=== PATIENT | male | born 1980 | race Caucasian/White ===

== ENCOUNTER → 2018-02-18 | Day surgery (SDC) | payer BC ==
[2018-02-15 09:57] LABS: BASO # 0.1 10*3/uL (0.0-0.1); BASO % 0.5 % (0.0-1.0); EOS # 0.3 10*3/uL (0.0-0.4); EOS % 2.4 % (1.0-4.0); HEMATOCRIT 45.1 % (42.0-52.0); HEMOGLOBIN 15.5 g/dl (14.0-18.0); LYMPH # 2.5 10*3/uL (1.3-4.4); LYMPH % 23.1 % (27.0-41.0); MEAN CELL VOLUME 86.7 fl (80.0-94.0); MEAN CORPUSCULAR HGB 29.8 pg (27.0-31.0); MEAN CORPUSCULAR HGB CONC 34.4 g/dl (33.0-37.0); MEAN PLATELET VOLUME 10.8 fl (9.6-12.3); MONO # 0.6 10*3/uL (0.1-1.0); MONO % 5.9 % (3.0-9.0); NEUT # 7.2 10*3/uL (2.3-7.9); NEUT % 67.7 % (47.0-73.0); PLATELET COUNT AUTOMATED 227 10*3/uL (130-400); RED CELL DISTRI WIDTH 12.6 % (0-14.5); WHITE BLOOD COUNT 10.7 10*3/uL (4.8-10.8)
[2018-02-15 10:15] LABS: BUN 14 mg/dl (7-24); CHLORIDE 107 mmol/L (98-107); CREATININE 0.83 mg/dL (0.70-1.30); POTASSIUM 3.4 mmol/L (3.5-5.1); SODIUM 141 mmol/L (136-145)
[2018-02-15 10:20] LABS: ACT PARTIAL THROMBO TIME 25.5 SECONDS (20.8-31.5)
[~2018-02-18] VITALS: Ht 182.8 cm; Wt 113.4 kg
[~2018-02-18] MED LIST: CLINDAMYCIN HC300 MG PO; FLEXERIL10 MG PO; FLEXERIL5 MG PO; MOTRIN800 MG PO; NAPROSYN500 MG PO; NORCO 5-325 TA1 EACH PO; PEN-VEE K500 MG PO; ULTRAM50 MG PO; VICODIN 5/500 505 MG PO; VOLTAREN50 M1 PO
--- NOTE | ~2018-02-18 | O ---
[place], [place] OPERATIVE NOTE NAME: JAIRO MAHARAJ UNIT #: [id number] ROOM: DOCTOR: JEFF BOSE MD BIRTHDATE: [birth year] DOS: 02/18/2018 PREOPERATIVE DIAGNOSIS: Umbilical hernia. POSTOPERATIVE DIAGNOSIS: Umbilical hernia. PROCEDURE: Umbilical hernia repair (primary). SURGEON: Jeff Bose MD OFFLINE CUTTER: KARL. ANESTHESIA: General. INDICATIONS: This is a 37-year-old gentleman with a symptomatic small umbilical hernia who is here for the above-mentioned procedure. The procedure and its complications were explained to the patient in detail preoperatively. Complications that were discussed included but were not limited to bleeding, infection, hematoma/seroma/abscess formation, prolonged postoperative pain and recurrence. He agreed to proceed. DESCRIPTION OF PROCEDURE: After identifying the patient, the patient was brought to the operating suite and laid in the supine position. After general anesthesia was administered by the anesthesia team, the parts were then painted and draped in the usual sterile fashion and a time-out procedure was called. An incision was made overlying the hernia to the left of the umbilicus in a circumlinear fashion. The skin and the subcutaneous tissue were incised and the hernia sac was dissected away from the surrounding subcutaneous tissue and was amputated at the area of the fascial defect and sent for histopathological diagnosis. Since the diameter of the hernial defect opening was approximately 2 mm, it was decided to perform a primary repair. This was done with the help [id number] #1 PDS suture. Thereafter, the subcutaneous tissue was irrigated and approximated with the help of 3-0 Vicryl in a running fashion and the edges of the skin were approximated with the help of 4-0 Vicryl after 1% lidocaine was injected for local anesthesia. Dressing was placed. The patient tolerated the procedure well. There were no complications. Dr. Jeff Bose, the attending surgeon, was present throughout the operating case. [place], [place] OPERATIVE NOTE NAME: JAIRO MAHARAJ UNIT #: [id number] ROOM: DOCTOR: JEFF BOSE MD BIRTHDATE: [birth year] Jeff Bose MD CM:OPRECORD:OPERATIVE NOTE [id number] JEFF BOSE MD 02/18/18 0942 interface
[2018-02-18 08:30] VITALS: BP 150/90
[2018-02-18 09:25] VITALS: BP 118/69
[2018-02-18 09:40] VITALS: BP 130/76
[2018-02-18 09:55] VITALS: BP 125/68
[2018-02-18 10:10] VITALS: BP 132/65
== END | disposition home or self-care (01) ==
LOC: SDC 02-15 08:45
PROVIDERS: Surgery
DX: K42.9 Umbilical hernia without obstruction or gangrene (principal); F17.210 Nicotine dependence, cigarettes, uncomplicated; Z90.49 Acquired absence of other specified parts of digestive tract; Z79.899 Other long term (current) drug therapy

== ENCOUNTER → 2020-09-12 | Outpatient (CLI) | payer BC | END | disposition home or self-care (01) | LOC: COVID19 10:50 | PROVIDERS: ATTEND Family Medicine | DX: Z20.828 Contact with and (suspected) exposure to other viral communicable diseases (principal) ==

== ENCOUNTER → 2022-04-04 | Outpatient (CLI) | payer BC ==
[2022-04-04 08:08] LABS: HEMATOCRIT 45.3 % (42.0-52.0); MEAN CELL VOLUME 83.3 fl (80.0-94.0); MEAN CORPUSCULAR HGB 29.2 pg (27.0-31.0); MEAN CORPUSCULAR HGB CONC 35.1 g/dl (33.0-37.0); MEAN PLATELET VOLUME 11.2 fl (9.6-12.3); RED BLOOD COUNT 5.44 10*6/uL (4.50-5.90); RED CELL DISTRI WIDTH 12.2 % (0-14.5); WHITE BLOOD COUNT 10.9 10*3/uL (4.8-10.8)
[2022-04-04 08:38] LABS: ALKALINE PHOSPHATASE 132 U/L (45-117); BUN 18 mg/dl (7-24); CHLORIDE 109 mmol/L (98-107); CHOLESTEROL 154 mg/dL (<200); CREATININE 0.93 mg/dL (0.70-1.30); LDL CHOLESTEROL 71 mg/dL (9-159); POTASSIUM 3.7 mmol/L (3.5-5.1); SGOT/AST 18 IU/L (3-35); SGPT/ALT 42 U/L (12-78); SODIUM 138 mmol/L (136-145); TOTAL PROTEIN 7.5 gm/dL (6.4-8.2); TRIGLYCERIDES 270 mg/dl (<150)
== END | disposition home or self-care (01) ==
LOC: LAB 07:45
PROVIDERS: ATTEND Family Medicine
DX: E11.9 Type 2 diabetes mellitus without complications (principal); I10 Essential (primary) hypertension; R53.83 Other fatigue; E55.9 Vitamin D deficiency, unspecified; E78.00 Pure hypercholesterolemia, unspecified

== ENCOUNTER → 2022-04-29 | Outpatient (CLI) | payer BC | END | disposition home or self-care (01) | LOC: US 04-24 15:00 | PROVIDERS: ATTEND Family Medicine | DX: N28.1 Cyst of kidney, acquired (principal); E11.9 Type 2 diabetes mellitus without complications ==

== ENCOUNTER 2022-06-07 05:13 | Emergency (ER) | payer BC ==
[2022-06-07] MEDS ORDERED: LOSARTAN POTASS25 M1 PO (05:20)
[2022-06-07] MEDS ORDERED: METFORMIN HYDR500 MG PO (05:20)
[2022-06-07] MEDS ORDERED: JARDIANCE10 MG PO (05:21)
[2022-06-07 06:15] LABS: BASO % 0.4 % (0.0-1.0); EOS # 0.1 10*3/uL (0.0-0.4); EOS % 0.8 % (1.0-4.0); LYMPH # 1.5 10*3/uL (1.3-4.4); LYMPH % 13.8 % (27.0-41.0); MEAN CELL VOLUME 86.8 fl (80.0-94.0); MEAN CORPUSCULAR HGB 29.6 pg (27.0-31.0); MEAN CORPUSCULAR HGB CONC 34.1 g/dl (33.0-37.0); MEAN PLATELET VOLUME 10.1 fl (9.6-12.3); MONO # 0.6 10*3/uL (0.1-1.0); MONO % 5.6 % (3.0-9.0); NEUT # 8.8 10*3/uL (2.3-7.9); NEUT % 79.2 % (47.0-73.0); PLATELET COUNT AUTOMATED 255 10*3/uL (130-400); RED CELL DISTRI WIDTH 12.2 % (0-14.5)
[2022-06-07 06:33] LABS: ALKALINE PHOSPHATASE 100 U/L (45-117); BUN 14 mg/dl (7-24); CHLORIDE 112 mmol/L (98-107); CREATININE 0.81 mg/dL (0.70-1.30); POTASSIUM 3.7 mmol/L (3.5-5.1); SGOT/AST 11 IU/L (3-35); SGPT/ALT 29 U/L (12-78); SODIUM 140 mmol/L (136-145); TOTAL PROTEIN 7.7 gm/dL (6.4-8.2)
[2022-06-07] MEDS ORDERED: TYLENOL325 M1 PO (08:07)
[2022-06-07] MEDS ORDERED: AMOXICILLIN500 M3 PO (08:07)
[2022-06-07] MEDS ORDERED: NAPROXEN250 MG PO (08:07)
== END 2022-06-07 09:25 | disposition home or self-care (01) ==
LOC: ED 05:13
PROVIDERS: Emergency Medicine
DX: K04.7 Periapical abscess without sinus (principal); Z79.899 Other long term (current) drug therapy; Z90.49 Acquired absence of other specified parts of digestive tract

== ENCOUNTER 2022-08-07 18:15 | Emergency (ER) | payer BC ==
[~2022-08-07] VITALS: Ht 182.8 cm; Wt 105.2 kg
[~2022-08-07 18:15] MED LIST changes: +AMOXICILLIN500 M3 PO; +JARDIANCE10 MG PO; +LOSARTAN POTASS25 M1 PO; +METFORMIN HYDR500 MG PO; +NAPROXEN250 MG PO; +TYLENOL325 M1 PO
[2022-08-07] MEDS ORDERED: DICLOFENAC SOD75 MG PO (20:33)
[2022-08-07] MEDS ORDERED: ZANAFLEX4 MG PO (22:56)
[2022-08-07] MEDS ORDERED: MEDROL DOSEPAK4 MG PO (22:56)
[2022-08-07] MEDS ORDERED: TRAMADOL HCL50 MG PO (22:58)
== END 2022-08-07 23:10 | disposition home or self-care (01) ==
LOC: ED 18:15
DX: M51.26 Other intervertebral disc displacement, lumbar region (principal); F17.200 Nicotine dependence, unspecified, uncomplicated; Z79.899 Other long term (current) drug therapy

== ENCOUNTER → 2022-10-21 | Outpatient (CLI) | payer BC ==
[~2022-10-21] MED LIST changes: +DICLOFENAC SOD75 MG PO; +MEDROL DOSEPAK4 MG PO; +TRAMADOL HCL50 MG PO; +ZANAFLEX4 MG PO
[2022-10-21 15:56] LABS: HEMATOCRIT 44.1 % (42.0-52.0); MEAN CELL VOLUME 87.2 fl (80.0-94.0); MEAN CORPUSCULAR HGB 29.6 pg (27.0-31.0); MEAN PLATELET VOLUME 10.1 fl (9.6-12.3); RED BLOOD COUNT 5.06 10*6/uL (4.50-5.90); RED CELL DISTRI WIDTH 13.1 % (0-14.5); WHITE BLOOD COUNT 6.8 10*3/uL (4.8-10.8)
[2022-10-21 16:10] LABS: ALKALINE PHOSPHATASE 86 U/L (46-116); BUN 16 mg/dl (9-23); CHLORIDE 105 mmol/L (98-107); CHOLESTEROL 125 mg/dL (<200); CPK 75 U/L (34-171); CREATININE 0.86 mg/dL (0.70-1.30); LDL CHOLESTEROL 65 mg/dL (9-159); POTASSIUM 3.5 mmol/L (3.4-5.1); SGPT/ALT 20 U/L (10-49); TRIGLYCERIDES 113 mg/dl (<150)
== END | disposition home or self-care (01) ==
LOC: LAB 15:26
PROVIDERS: ATTEND Family Medicine
DX: E11.9 Type 2 diabetes mellitus without complications (principal); E78.00 Pure hypercholesterolemia, unspecified

== ENCOUNTER → 2023-01-23 | Outpatient (CLI) | payer BC ==
[2023-01-23 09:10] LABS: HEMATOCRIT 43.8 % (42.0-52.0); MEAN CELL VOLUME 85.2 fl (80.0-94.0); MEAN CORPUSCULAR HGB 30.2 pg (27.0-31.0); MEAN CORPUSCULAR HGB CONC 35.4 g/dl (33.0-37.0); MEAN PLATELET VOLUME 10.4 fl (9.6-12.3); RED BLOOD COUNT 5.14 10*6/uL (4.50-5.90); RED CELL DISTRI WIDTH 12.2 % (0-14.5); WHITE BLOOD COUNT 7.5 10*3/uL (4.8-10.8)
[2023-01-23 09:33] LABS: ALKALINE PHOSPHATASE 91 U/L (46-116); BUN 14 mg/dl (9-23); CHLORIDE 109 mmol/L (98-107); CHOLESTEROL 121 mg/dL (<200); CPK 98 U/L (34-171); LDL CHOLESTEROL 64 mg/dL (9-159); POTASSIUM 3.6 mmol/L (3.4-5.1); SGPT/ALT 18 U/L (10-49); TOTAL PROTEIN 6.7 gm/dL (6.0-8.0); TRIGLYCERIDES 126 mg/dl (<150)
== END | disposition home or self-care (01) ==
LOC: LAB 08:50
PROVIDERS: ATTEND Family Medicine
DX: E11.9 Type 2 diabetes mellitus without complications (principal); E78.00 Pure hypercholesterolemia, unspecified

== ENCOUNTER 2024-01-31 11:55 | Emergency (ER) | payer BC ==
[~2024-01-31] VITALS: Ht 182.9 cm; Wt 113.4 kg
[2024-01-31] MEDS ORDERED: Ondansetron Hydrochloride 4 MG/2 ML VIAL IV ONE (12:15)
[2024-01-31] MEDS ORDERED: Ketorolac Tromethamine 15 MG/ML VIAL IV ONE (12:15)
[2024-01-31] MEDS ORDERED: MORPHINE Sulfate 2 MG/ML SYR IV ONE (12:15)
[2024-01-31] MEDS ORDERED: SODIUM CHLORIDE 0.9% 1,000 ML IV ONE (12:15)
[2024-01-31 12:25] LABS: BASO # 0.1 10*3/uL (0.0-0.1); BASO % 0.4 % (0.0-1.0); EOS # 0.2 10*3/uL (0.0-0.4); EOS % 1.4 % (1.0-4.0); HEMATOCRIT 46.8 % (42.0-52.0); LYMPH % 18.3 % (27.0-41.0); MEAN CORPUSCULAR HGB CONC 33.3 g/dl (33.0-37.0); MEAN PLATELET VOLUME 10.6 fl (9.6-12.3); MONO # 0.7 10*3/uL (0.1-1.0); MONO % 6.5 % (3.0-9.0); NEUT # 8.1 10*3/uL (2.3-7.9); NEUT % 73.1 % (47.0-73.0); PLATELET COUNT AUTOMATED 212 10*3/uL (130-400); RED CELL DISTRI WIDTH 12.8 % (0-14.5); WHITE BLOOD COUNT 11.1 10*3/uL (4.8-10.8)
[2024-01-31 12:38] LABS: BILIRUBIN Negative (Negative); BLOOD 3+ (Negative); COLOR Yellow (Yellow); GLUCOSE Negative (Negative); KETONE Negative (Negative); LEUKO ESTERASE Trace (Negative); NITRITE Negative (Negative); PH 5.5 (4.5-8.0)
[2024-01-31 12:41] LABS: ALKALINE PHOSPHATASE 90 U/L (46-116); BUN 15 mg/dl (9-23); CHLORIDE 107 mmol/L (98-107); POTASSIUM 3.6 mmol/L (3.4-5.1); SGPT/ALT 27 U/L (5-49)
[2024-01-31 12:48] LABS: CLARITY Cloudy (Clear)
[2024-01-31 12:50] LABS: RBC TNTC rbc/hpf (0-2)
[2024-01-31 12:51] LABS: BACTERIA 1+
[2024-01-31 12:52] LABS: WBC 0-2 wbc/hpf (0-5)
[2024-01-31] MEDS ORDERED: PERCOCET 5-3251 EACH PO (13:15)
[2024-01-31] MEDS ORDERED: FLOMAX0.4 MG PO (13:15)
[2024-01-31] MEDS ORDERED: CIPRO500 MG PO (13:15)
[2024-01-31] MEDS ORDERED: ONDANSETRON4 MG SL (13:15)
== END 2024-01-31 13:20 | disposition home or self-care (01) ==
LOC: ED 11:55
PROVIDERS: Emergency Medicine
DX: N20.0 Calculus of kidney (principal); E11.9 Type 2 diabetes mellitus without complications; Z90.49 Acquired absence of other specified parts of digestive tract

== ENCOUNTER → 2024-02-08 | Outpatient (CLI) | payer BC ==
[~2024-02-08] MED LIST changes: +CIPRO500 MG PO; +FLOMAX0.4 MG PO; +ONDANSETRON4 MG SL; +PERCOCET 5-3251 EACH PO
[2024-02-08 16:00] LABS: HEMATOCRIT 48.9 % (42.0-52.0); MEAN CELL VOLUME 89.6 fl (80.0-94.0); MEAN CORPUSCULAR HGB CONC 33.5 g/dl (33.0-37.0); MEAN PLATELET VOLUME 10.6 fl (9.6-12.3); RED BLOOD COUNT 5.46 10*6/uL (4.50-5.90); RED CELL DISTRI WIDTH 13.1 % (0-14.5); WHITE BLOOD COUNT 10.1 10*3/uL (4.8-10.8)
[2024-02-08 16:28] LABS: ALKALINE PHOSPHATASE 89 U/L (46-116); BUN 19 mg/dl (9-23); CHLORIDE 107 mmol/L (98-107); CHOLESTEROL 130 mg/dL (<200); CPK 129 U/L (34-171); LDL CHOLESTEROL 72 mg/dL (9-159); POTASSIUM 3.9 mmol/L (3.4-5.1); SGPT/ALT 28 U/L (5-49); TOTAL PROTEIN 7.2 gm/dL (6.0-8.0); TRIGLYCERIDES 128 mg/dl (<150)
[2024-02-08 16:29] LABS: VITAMIN D, 25-HYDROXY 27.4 ng/mL (30-100)
== END ==
LOC: LAB 15:41
PROVIDERS: ATTEND Family Medicine
DX: N20.0 Calculus of kidney (principal); E11.9 Type 2 diabetes mellitus without complications; E55.9 Vitamin D deficiency, unspecified; R53.83 Other fatigue; M17.0 Bilateral primary osteoarthritis of knee

== ENCOUNTER → 2024-03-08 | Outpatient (CLI) | payer BC ==
[2024-03-08 16:32] LABS: BUN 15 mg/dl (9-23); CHLORIDE 108 mmol/L (98-107); POTASSIUM 3.7 mmol/L (3.4-5.1)
== END | disposition home or self-care (01) ==
LOC: LAB 15:49
PROVIDERS: ATTEND Family Medicine
DX: R94.4 Abnormal results of kidney function studies (principal)

== ENCOUNTER → 2024-10-25 | Outpatient (CLI) | payer BC ==
[2024-10-25 15:44] LABS: HEMATOCRIT 46.6 % (42.0-52.0); MEAN CELL VOLUME 89.6 fl (80.0-94.0); MEAN CORPUSCULAR HGB CONC 34.5 g/dl (33.0-37.0); MEAN PLATELET VOLUME 10.4 fl (9.6-12.3); RED BLOOD COUNT 5.2 10*6/uL (4.50-5.90); RED CELL DISTRI WIDTH 12.8 % (0-14.5); WHITE BLOOD COUNT 9.1 10*3/uL (4.8-10.8)
[2024-10-25 16:09] LABS: ALKALINE PHOSPHATASE 93 U/L (46-116); BUN 17 mg/dl (9-23); CHLORIDE 108 mmol/L (98-107); CHOLESTEROL 95 mg/dL (<200); CPK 115 U/L (34-171); LDL CHOLESTEROL 45 mg/dL (9-159); POTASSIUM 3.6 mmol/L (3.4-5.1); SGPT/ALT 22 U/L (5-49); TOTAL PROTEIN 6.9 gm/dL (6.0-8.0); TRIGLYCERIDES 78 mg/dl (<150)
== END | disposition home or self-care (01) ==
LOC: LAB 15:26
PROVIDERS: ATTEND Family Medicine
DX: E11.9 Type 2 diabetes mellitus without complications (principal); E78.00 Pure hypercholesterolemia, unspecified; I10 Essential (primary) hypertension

== ENCOUNTER → 2025-03-08 | Outpatient (CLI) | payer BC ==
[2025-03-08 08:37] LABS: HEMATOCRIT 46.9 % (42.0-52.0); MEAN CELL VOLUME 89.8 fl (80.0-94.0); MEAN CORPUSCULAR HGB 31.2 pg (27.0-31.0); MEAN CORPUSCULAR HGB CONC 34.8 g/dl (33.0-37.0); MEAN PLATELET VOLUME 10.5 fl (9.6-12.3); RED BLOOD COUNT 5.22 10*6/uL (4.50-5.90); RED CELL DISTRI WIDTH 12.9 % (0-14.5)
[2025-03-08 08:59] LABS: ALKALINE PHOSPHATASE 82 U/L (46-116); BUN 16 mg/dl (9-23); CHLORIDE 111 mmol/L (98-107); CHOLESTEROL 160 mg/dL (<200); CPK 141 U/L (34-171); LDL CHOLESTEROL 111 mg/dL (9-159); POTASSIUM 4.1 mmol/L (3.4-5.1); SGPT/ALT 31 U/L (5-49); TOTAL PROTEIN 6.8 gm/dL (6.0-8.0); TRIGLYCERIDES 77 mg/dl (<150)
== END | disposition home or self-care (01) ==
LOC: LAB 08:17
PROVIDERS: ATTEND Family Medicine
DX: E11.9 Type 2 diabetes mellitus without complications (principal); E78.00 Pure hypercholesterolemia, unspecified; E55.9 Vitamin D deficiency, unspecified

== ENCOUNTER → 2025-05-04 | Outpatient (CLI) | payer BC ==
[2025-05-04 11:25] LABS: BUN 15 mg/dl (9-23); CPK 89 U/L (34-171); LDL CHOLESTEROL 65 mg/dL (9-159); SGPT/ALT 27 U/L (5-49)
== END | disposition home or self-care (01) ==
LOC: LAB 10:10
PROVIDERS: ATTEND Family Medicine
DX: E78.00 Pure hypercholesterolemia, unspecified (principal); Z11.59 Encounter for screening for other viral diseases